=== PATIENT | male | born 1990 | race Caucasian/White ===

== ENCOUNTER 2018-05-01 14:01 | Emergency (ER) | payer BC, OTHER ==
--- OUTSIDE RECORDS SUMMARY | 2018-05-01 14:44 | XMS REPORT ---
:1990 External Reference #:[id number] Author Organization [facility] Address [address] [place] [address] Phone [phone] Care Team Providers Name Role Phone HCP given Primary Care Physician Unavailable Payers Type Date Identification Numbers Payment Provider Subscriber Commercial Effective: Policy Number: [id number] [facility] Mynor Cantu [address] [place] Expires: 2018 PayID: [id number] [address] [place] [address] Commercial Effective: 2018 Policy Number: Peter [employer]ential Rich Cantu [id number] Plan PayID: [id number] [address] [address] [place] [address] Problems Date Description Provider Status Onset: 04/11/2016 Gastroesophageal reflux disease Casper Escalera M.D. Active Onset: 04/11/2016 Edema Casper Escalera M.D. Active Onset: 04/11/2016 Opioid dependence, uncomplicated Casper Escalera M.D. Active Onset: 03/15/2017 Carpal tunnel syndrome of right wrist Casper Escalera M.D. Active Onset: 03/15/2017 Bladder muscle dysfunction - Casper Escalera M.D. 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 in mouth) every morning; suboxone prescriber # [id number]; rx due 04/21/18 Hydrochlorothiazi 06/07 Active Tablets 25mg 12tab take 1 R60.0 Silcoff, s tablet in Casper, the M.D. morning no more than 3x/wk, as needed for leg swelling Omeprazole 03/[address] 40mg 30cap take one K21.9 Silcoramy, s capsule by rosalinda Shirley M.DLuigi every day for acid reflux Cock Up Wrist 02/13 Active 1unit use as G56.01 Silcoff, Splint For R s Casper meraz (For CTS) overnight M.D. Oxybutynin 08/29 Active Tablets ER 5mg 30tab Take One N32.81 Silcoff, Chloride ER 24HR s Tablet By Rosalinda Shirley M.DLuigi Every Evening For Overactive Bladder Suboxone 12/18 Hx Film 8-2mg 75uni 2.5 films F11.20 Silcoff ts by rosalinda Shirley, - every M.D. 02/20 morning suboxone prescriber # [id number]; rx due 02/20/18 Nicotine 08/28 Hx Patches 21mg/24HR 42uni apply 1 F17.210 Silcoff 24HR ts patchCasper, - change M.D. 05/12 daily as directed for 6weeks then change to 14mg strength Suboxone 02/09 Hx Film 8-2mg 60uni 2 by mouth F11.20 Sil ts every Casper, - morning; M.D. 12/18 sub prescriber # [id number]; rx due 11/17/15 Hydrochlorothiazi 01/09 Hx Tablets 25mg 12tab take 1 R60.0 Silco, s tablet in Casper - the M.DLuigi 03/15 morning more than 3x/wk, for leg swelling Omeprazole 01/[address] 20mg 90cap 1 by mouth K21.9 co s every day Casper, - M.DLuigi 03/15 Hydrochlorothiazi 01/08 Hx Tablets 25mg take 1 R60.0 Unknown tablet - every 01/09 for edema Suboxone 01/08 Hx Film 12-3mg 1 by mouth F11.20 every - morning 02/09 Nexium 03/[address] 40mg 90cap 1 po qd 530.81 pa s - 03/12 Ciprodex 03/13 Hx Suspension 0.3%;0.1 4 Drops In 380.22 klepack /2005 % For Right - Ear bid 03/12 For 7 Days /2006 # QS For 7 Days. Ferrous Sulfate 02/22 Hx Tablets 325mg 120ta 1 PO qd 285.9 klepack /2006 bs - 02/22 Vicodin 02/22 Hx Tablets 5mg;500 60tab 1-2 PO Q4 826.0 klepack /2006 mg s Hours prn - 02/22 Prilosec(Generic 01/24 Hx 30uni 1 po q day klepack Brand) /2005 ts - 03/12 Immunizations CPT Code Status Date Vaccine Lot # [id number] Given 07/12/2017 Influenza Virus Vaccine, Quadrivalent, Split, [id number] Preservative Free 85870 Given 02/13/2017 Adacel or Boostrix, TDaP [id number] Given 03/08/2015 Tetanus diptheria Immunization 46536 Given 03/07/2004 Dtap Immunization (Tripedia) (Infanrix) Vital Signs Date Vital Result Comment 04/18/2018 BP Systolic 124 mmHg BP Diastolic 70 mmHg 03/19/2018 BP Systolic 116 mmHg BP Diastolic 78 mmHg 02/19/2018 BP Systolic 128 mmHg BP Diastolic 78 mmHg Height 69.50 inches 5'9.50" w/shoes Weight 216.00 lb w/shoes BMI (Body Mass Index) 31.4 kg/m2 01/06/2018 BP Systolic 116 mmHg BP Diastolic 62 mmHg Weight 219.00 lb 12/09/2017 BP Systolic 118 mmHg BP Diastolic 82 mmHg 11/11/2017 BP Systolic 124 mmHg BP Diastolic 74 mmHg Weight 214.00 lb 10/08/2017 BP Systolic 128 mmHg BP Diastolic 78 mmHg Weight 216.00 lb 09/06/2017 BP Systolic 116 mmHg BP Diastolic 68 mmHg Weight 217.00 lb heavy boots 08/07/2017 BP Systolic 116 mmHg BP Diastolic 66 mmHg 07/12/2017 BP Systolic 106 mmHg BP Diastolic 64 mmHg Weight 222.00 lb 06/07/2017 BP Systolic 118 mmHg BP Diastolic 76 mmHg 05/13/2017 BP Systolic 123 mmHg BP Diastolic 73 mmHg Heart Rate 59 /min Weight 231.00 lb with workboots 04/12/2017 BP Systolic 124 mmHg BP Diastolic 82 mmHg Weight 228.00 lb 03/15/2017 BP Systolic 120 mmHg BP Diastolic 78 mmHg Height 69.5 inches 5'9.50" with sneakers Weight 228.00 lb with sneakers BMI (Body Mass Index) 33.2 kg/m2 02/13/2017 BP Systolic 118 mmHg BP Diastolic 76 mmHg Weight 228.00 lb 01/15/2017 BP Systolic 118 mmHg BP Diastolic 72 mmHg Weight 231.00 lb w/shoes 12/18/2016 BP Systolic 122 mmHg BP Diastolic 82 mmHg 11/16/2016 BP Systolic 128 mmHg BP Diastolic 82 mmHg Weight 224.00 lb with shoes 10/12/2016 BP Systolic 128 mmHg BP Diastolic 82 mmHg Weight 223.00 lb 09/17/2016 BP Systolic 110 mmHg BP Diastolic 70 mmHg 08/28/2016 BP Systolic 116 mmHg BP Diastolic 60 mmHg Height 69 inches 5'9" Weight 220.00 lb BMI (Body Mass Index) 32.5 kg/m2 04/11/2016 BP Systolic 132 mmHg BP Diastolic 82 mmHg Weight 212.00 lb 01/10/2016 BP Systolic 138 mmHg BP Diastolic 78 mmHg BP Systolic Recheck 134 mmHg R arm sitting BP Diastolic Recheck 80 mmHg R arm sitting Heart Rate 76 /min reg Respiratory Rate 12 /min not laboured Height 69 inches 5'9" Weight 200.00 lb BMI (Body Mass Index) 29.5 kg/m2 03/12/2007 BP Systolic 130 mmHg BP Diastolic 78 mmHg Height 68.9 inches 5'8.90" Weight 237.00 lb BMI (Body Mass Index) 35.1 kg/m2 Last Menstrual Period 0 03/13/2006 BP Systolic 130 mmHg BP Diastolic 56 mmHg Body Temperature 98.1 F Height 68 inches 5'8" Weight 225.00 lb BMI (Body Mass Index) 34.2 kg/m2 02/22/2006 BP Systolic 116 mmHg BP Diastolic 80 mmHg 01/24/2006 BP Systolic 100 mmHg BP Diastolic 60 mmHg Height 68.6 inches 5'8.60" Weight 227.00 lb BMI (Body Mass Index) 33.9 kg/m2 Last Menstrual Period 0 Results Test Date Test Result H/L Range Note Urine Drug Screen Inhouse 12/09/2017 Ua Cocaine - Ua Opiates - Ua Amphetamines - Urine Methanphetamines - Urine Benzodiazepines QN [place] - Urine Oxycodone QL - Urine Drug Screen Inhouse 09/06/2017 Ua Cocaine - Ua Opiates - Ua Amphetamines - Urine Methanphetamines - Urine Benzodiazepines QN [place] - Urine Oxycodone QL - Culture Urine Inhouse 08/28/2016 Colonies no growth Urine Micro Inhouse 08/28/2016 Ua WBC 4-8 Ua RBC - Ua Casts - Ua Epi - Ua Other - Ua Glucose - Ua Bilirubin - Ua Ketones - Ua Specific [place] 1.020 Ua Blood - Ua PH 6.0 Ua Protein - Ua Urobilinogen - Ua Nitrite - Ua Leukocytes - Urine Drug Screen Inhouse 01/10/2016 Ua Cocaine - Ua Opiates - Ua Amphetamines - Urine Methanphetamines - Urine Benzodiazepines QN [place] - Urine Oxycodone QL - CBC With Electronic Diff 02/13/2006 White Blood Count 10.1 CUMM 4.8-10.8 Abs Basophils 0 0-0.2 Abs Eosinophils 0.2 0-0.6 Absolute Neutrophil Count 7.2 1.5-7.7 Abs Lymphs 2.1 1.0-4.8 Abs Mononuclear 0.7 0-0.8 Basophil % 0.4 % 0-2 Hematocrit 41 % Low 42-52 Hemoglobin 14.6 g/dL 14.0-18.0 Eosinophil % 1.8 % 0-6 Gran % 70.5 % 38-83 Lymph % 20.8 % 20-45 Mean Corpuscular HGB Cone 35 g/dL 32-36 Mean Corpuscular Hemoglob 29 pg 27-31 Mean Corpuscular Volume 83 um3 80-94 Mean Platelet Volume 9.2 um3 7.4-10.4 Mononuclear % 6.5 % 1-9 Platelet Count 255 CUMM 150-450 Red Cell Count 4.96 CUMM 4.6-6.2 Redcell Distribution WDTH 13 % 10.5-15 Retic Count 02/13/2006 Corrected Retic 1.8 % High 0.5-1.5 Hematocrit For Retic Coun 41 % Low 42-52 Maturation Factor 1.0 RBC Retic Count 4.96 CUMM 4.6-6.2 Reticulocyte Count 2.00 % High 0.5-1.5 Immature Retic Fraction 0.32 Mean Retic Volume 97.1 Retic Index 1.8 Laboratory test finding 02/13/2006 Folic Acid 10.2 NG/ML 2.2-18.3 Vitamin B12 380 pg/mL 180-914 Iron & Iron Binding Capacity 02/13/2006 Iron Total 69 g/dL 45-182 Unsaturated Iron Binding 372 g/dL Total Iron Binding Capacity 441 g/dL 250-450 % Iron Saturation 16 % 15-55 Transferrin 315.3 Lipid Profile 02/13/2006 Cholesterol/HDL Ratio 5.96 AVERAGE High 1-4.97 (Trig/Chol/HDL) Cholesterol 161 mg/dL 100-175 Triglyceride 146 mg/dL 40-200 High Density Lipoprotein 27 mg/dL Low 40-60 1 Low Density Lipoprotein 105 mg/dL High Less Than 100 2 H. Pylori Evaluation Quantitat 01/24/2006 H. Pylori Iga < 0.8 INDEX < 0.80 3 H. Pylori Igg < 0.8 INDEX <0.80 H. Pylori Igm < 0.8 INDEX <0.80 Laboratory test finding 01/24/2006 Amylase 54 U/L 30-125 Lipase 20 U/L Low 22-51 Comp Metabolic Panel 01/24/2006 One Over Creatinine 1.25 Anion Gap 7.0 mmol/L 2-11 4 Albumin/Globulin Ratio 1.7 1-3 Albumin 4.2 GM/DL 3.6-5.4 Alkaline Phosphatase 121 U/L 50-176 Alt (SGPT) 49 U/L 17-63 Ast (Sgot) 30 U/L 12-42 BUN 10 mg/dL 6-24 Calcium 9.8 mg/dL 8.7-10.2 Chloride 107 mmol/L 101-111 Co2 (Carbon Dioxide) 25.0 mmol/L 22-32 Globulin 2.5 GM/DL 2-4 Glucose 89 mg/dL 70-105 Potassium 4.5 mmol/L 3.5-5.0 Sodium 139 mmol/L 135-145 Bilirubin Total 0.6 mg/dL 0.4-1.5 Total Protein 6.7 GM/DL 6.2-8.1 BUN/Creatinine Ratio 12.5 8-20 Creatinine 0.8 mg/dL 0.5-1.4 CBC With Manual Diff 01/24/2006 RBC Morphology NORMAL White Blood Count 7.6 CUMM 4.8-10.8 Hematocrit 41 % Low 42-52 Hemoglobin 14.7 g/dL 14.0-18.0 Mean Corpuscular HGB Cone 36 g/dL 32-36 Mean Corpuscular Hemoglob 30 pg 27-31 Mean Corpuscular Volume 83 um3 80-94 Mean Platelet Volume 8.7 um3 7.4-10.4 Platelet Count 281 CUMM 150-450 Polysegmented Neutrophil 73 % 38-83 Red Cell Count 4.97 CUMM 4.6-6.2 Redcell Distribution WDTH 12 % 10.5-15 Absolute Neutrophil Count 5.5 Eosenophil 1 % 0-6 Lymphocyte 23 % 5-47 Monocyte 3 % 0-13 Laboratory test finding 01/24/2006 TSH 2.41 MIU/ML 0.34-5.60 Lipid Profile (Trig/Chol/HDL) 01/24/2006 Cholesterol 152 mg/dL 100-175 Triglyceride 173 mg/dL 40-200 High Density Lipoprotein 19 mg/dL Low 40-60 5 Low Density Lipoprotein 98 mg/dL Less Than 100 6 Cholesterol/HDL Ratio 8.00 AVERAGE High 1-4.97 1 Classification: Low . 2 CALCULATED LDL APPROXIMATES THE VALUE OF A DIRECT LDL MEASUREMENT. Classification: Near or above optimal . 3 REFERENCE RANGE FOR H. PYLORI IGG, IGM IGA: LESS THAN 0.8 . . . . . . . NEGATIVE 0.8 - 1.0 . . . . . . . . . BORDERLINE GREATER THAN 1.0 . . . . . POSITIVE THIS TEST WAS DEVELOPED FROM A COMMERCIAL KIT LABELED "RESEARCH USE ONLY". THE KIT HAS NOT BEEN CLEARED OR APPROVED BY THE [place] FOOD AND DRUG ADMINISTRATION (FDA). THE PERFORMANCE CHARACTERISTICS OF THIS TEST WERE ESTABLISHED THROUGH VALIDATION BY [employer], WHICH IS REGULATED UNDER THE CLINICAL LABORATORY IMPROVEMENT AMENDMENTS OF 1988 ("CLIA") QUALIFIED TO PERFORM HIGH COMPLEXITY CLINICAL TESTING. TEST PERFORMED BY: [employer] [id number] [place] [address] 4 Anion gap measurement may be of limited value in the presence of any alkalosis, especially in a combined acid base disorder. . 5 Classification: Low . 6 CALCULATED LDL APPROXIMATES THE VALUE OF A DIRECT LDL MEASUREMENT. Classification: Optimal Level . Procedures Description No Information Encounters Type Date Location Provider CPT E/M Dx Office Visit 04/18/2018 4:45p Main Office Casper Escalera M.D. 28328 F11.20 Z71.51 R53.83 Z13.220 Office Visit 03/19/2018 4:00p Main Office Casper Escalera M.D. 20965 F11.20 Z71.51 N32.81 Office Visit 02/19/2018 4:15p Main Office Casper Escalera M.D. 82772 F11.20 Z71.51 N32.81 Office Visit 01/06/2018 4:30p Main Office Casper Escalera M.D. 71718 F11.20 Z71.51 Office Visit 12/09/2017 4:30p Main Office Casper Escalera M.D. 47508 F11.20 Z71.51 Office Visit 11/11/2017 4:45p Main Office Casper Escalera M.D. 81628 F11.20 Z71.51 Office Visit 10/08/2017 4:00p Main Office Casper Escalera M.D. 78198 F11.20 Z71.51 R60.0 Office Visit 09/06/2017 2:00p Main Office Casper Escalera M.D. 85337 F11.20 Z71.51 Office Visit 08/07/2017 4:15p Main Office Casper Escalera M.D. 43246 F11.20 Z71.51 Office Visit 07/12/2017 4:15p Main Office Casper Escalera M.D. 61676 F11.20 Z71.51 R60.0 Z23 Z41.8 Office Visit 06/07/2017 10:45a Main Office Casper Escalera M.D. 78664 F11.20 Z71.51 R60.0 Z23 Office Visit 05/13/2017 4:45p Main Office Casper Escalera M.D. 28365 F11.20 Z71.51 Office Visit 04/12/2017 10:45a Main Office Casper Escalera M.D. 62203 F11.20 K21.9 N32.81 Z71.51 Office Visit 03/15/2017 3:30p Main Office Casper Escalera M.D. 52803 F11.20 K21.9 G56.01 R07.9 N32.81 Office Visit 02/13/2017 3:00p Main Office Casper Escalera M.D. 95273 F11.20 Z71.51 G56.01 Z41.8 Z23 Office Visit 01/15/2017 3:00p Main Office Casper Escalera M.D. 59525 F11.20 Z71.51 Office Visit 12/18/2016 4:45p Main Office Casper Escalera M.D. 85649 F11.20 Z71.51 Office Visit 11/16/2016 4:45p Main Office Casper Escalera M.D. 77347 F11.20 F17.210 N32.81 K21.9 Office Visit 10/12/2016 8:30a Main Office Casper Escalera M.D. 72849 F11.20 F17.210 Z71.89 Office Visit 09/17/2016 4:45p Main Office Casper Escalera M.D. 66172 F11.20 N32.81 R39.15 R35.0 F17.210 Office Visit 08/28/2016 4:00p Main Office Casper Escalera M.D. 86309 R35.0 R39.15 F17.210 F11.20 Office Visit 04/11/2016 1:15p Main Office Casper Escalera M.D. 06506 F11.20 K21.9 R60.0 Office Visit 01/10/2016 10:30a Main Office Casper Escalera M.D. 89984 F11.20 K21.9 R60.0 Office Visit 03/12/2007 10:30a Main Office mary 93256 V20.2 530.81 278.00 285.9 272.8 Office Visit 03/13/2006 3:30p Main Office klepagely 64277 388.71 380.22 Office Visit 02/22/2006 4:00p Main Office klepagely 32921 530.81 278.00 285.9 272.8 826.0 Office Visit 01/24/2006 10:30a Main Office mary 87934 530.81 789.06 278.00 Plan of Care Future Appointment(s):06/16/2018 4:45 pm - Casper Escalera M.D. at Main Bdywyu9905/19/2018 4:30 pm - Casper Escalera M.D. at Main Azezec6204/18/2018 - Casper Escalera M.D.F11.20 Opioid dependence, uncomplicatedFollow up:RTO 1 lgvriE69.51 Drug abuse counseling and surveillance of drug nhsiqqG20.83 Other fatigueNew Labs:CBS W/Automated DiffComprehensive Metabolic PanelThyroid Stim HormoneComments:If labs unremarkable will refer him for sleep study as the next step. This plan was discussed.Z13.220 Encounter for screening for lipoid disordersNew Labs:LDL Cholesterol Profile
--- NOTE | 2018-05-01 15:08 | UC ---
Lower Extremity/Ankle HPI - History of Current Complaint Stated Complaint: L KNEE/ANKLE SPORTS INJURY Time Seen by Provider: 05/01/18 14:52 - Allergies/Home Medications Allergies/Adverse Reactions: Allergies Allergy/AdvReac Type Severity Reaction Status Date / Time cefaclor [From Ceclor] Allergy Unknown hives, Verified 05/01/18 14:49 swelling PMH/Surg Hx/FS Hx/Imm Hx - Surgical History Surgical History: Yes Surgery Procedure, Year, and Place: t/a, appy - Family History Known Family History: Positive: Cardiac Disease, Hypertension - Social History Alcohol Use: None Substance Use Type: None Smoking Status (MU): Heavy Every Day Tobacco Smoker Discharge - Discharge Plan Referrals: Casper Escalera MD [Primary Care Provider] -
[2018-05-01 15:32] VITALS: BP 126/77
--- NOTE | 2018-05-01 15:35 | RAD ---
HISTORY: injury to the left knee, COMPARISONS: None VIEWS: 4, Frontal, lateral, axial, and oblique views of the left knee FINDINGS: BONE DENSITY: Normal. BONES: There is no displaced fracture. JOINTS: There is no arthropathy. There is no suprapatellar joint effusion or lipohemarthrosis. ALIGNMENT: There is no dislocation. SOFT TISSUES: Unremarkable. OTHER FINDINGS: None. IMPRESSION: NO ACUTE OSSEOUS INJURY. IF SYMPTOMS PERSIST, RECOMMEND REPEAT IMAGING.
--- NOTE | 2018-05-01 15:42 | UC ---
Knee Pain HPI - History of Current Complaint Chief Complaint: UCLowerExtremity Stated Complaint: L KNEE/ANKLE SPORTS INJURY Time Seen by Provider: 05/01/18 14:52 Pain Intensity: 5 - Allergies/Home Medications Allergies/Adverse Reactions: Allergies Allergy/AdvReac Type Severity Reaction Status Date / Time cefaclor [From Ceclor] Allergy Unknown hives, Verified 05/01/18 14:49 swelling PMH/Surg Hx/FS Hx/Imm Hx - Surgical History Surgical History: Yes Surgery Procedure, Year, and Place: t/a, appy. tubes ears - Family History Known Family History: Positive: Cardiac Disease, Hypertension - Social History Alcohol Use: None Substance Use Type: None Substance Use Comment - Amount & Last Used: in recovery Smoking Status (MU): Heavy Every Day Tobacco Smoker Type: Cigarettes Amount Used/How Often: 1.5 ppd Have You Smoked in the Last Year: Yes Household Exposure Type: Cigarettes Review of Systems Motor: Negative Neurovascular: Negative Musculoskeletal: Other: - pain ,swelling left knee Neurological: Negative All Other Systems Reviewed And Are Negative: Yes Physical Exam Triage Information Reviewed: Yes Appearance: Well-Appearing Vital Signs: Initial Vital Signs Temp 37.2 C 05/01/18 14:52 Pulse 83 05/01/18 14:52 Resp 18 05/01/18 14:52 BP 126/77 05/01/18 14:52 Pulse Ox 98 05/01/18 14:52 Vital Signs Reviewed: Yes Eye Exam: Normal ENT Exam: Normal ENT: Positive: Normal ENT inspection Neck exam: Normal Neck: Positive: Supple Respiratory Exam: Normal Respiratory: Positive: Chest non-tender Musculoskeletal Exam: Other - pain with flexion and extension left knee, no effusion, negative Mirna, no varus or valgus evidence of ligamentous laxity Skin Exam: Normal Knee Pain Course/Dx - Differential Dx/Diagnosis Provider Diagnoses: knee sprain Discharge - Sign-Out/Discharge Documenting (check all that apply): Patient Departure - Discharge Plan Condition: Good Disposition: HOME Patient Education Materials: Knee Sprain (ED) Referrals: Casper Escalera MD [Primary Care Provider] - - Billing Disposition and Condition Condition: GOOD Disposition: Home
== END 2018-05-01 15:55 | disposition home or self-care (01) ==
LOC: UCCORT 14:01
DX: S83.92XA Sprain of unspecified site of left knee, initial encounter (principal); X58.XXXA Exposure to other specified factors, initial encounter; Y93.9 Activity, unspecified; Y92.9 Unspecified place or not applicable; Z88.1 Allergy status to other antibiotic agents; F17.210 Nicotine dependence, cigarettes, uncomplicated
CPT/HCPCS: 99211; G0463

== ENCOUNTER 2018-05-10 18:31 | Emergency (ER) | payer BC, OTHER ==
[2018-05-10 19:31] VITALS: BP 123/77
--- NOTE | 2018-05-10 20:19 | UC ---
Lower Extremity/Ankle HPI - History of Current Complaint Chief Complaint: UCLowerExtremity Stated Complaint: LEFT LEG COMPLAINT Time Seen by Provider: 05/10/18 19:52 Hx Obtained From: Patient Onset/Duration: Sudden Onset - after being hit by a softball during a game earlier today. Severity Initially: Mild Severity Currently: Moderate Pain Intensity: 4 Aggravating Factor(s): Standing, Ambulation Alleviating Factor(s): Rest Able to Bear Weight: No - But was able to walk on it early on. - Risk Factors Gout Risk Factors: Negative DVT Risk Factors: Negative Septic Arthritis Risk Factor: Negative - Allergies/Home Medications Allergies/Adverse Reactions: Allergies Allergy/AdvReac Type Severity Reaction Status Date / [facility] Allergy Unknown hives, Verified 05/01/18 14:49 swelling PMH/Surg Hx/FS Hx/Imm Hx Previously Healthy: Yes - except for opioid abuse GI/ History: Gastroesophageal Reflux, Other - overacitve bladder Other GI/ History: overactive bladder - Surgical History Surgical History: Yes Surgery Procedure, Year, and Place: t/a, appy. tubes ears - Family History Known Family History: Positive: Cardiac Disease, Hypertension - Social History Alcohol Use: None Substance Use Type: None Substance Use Comment - Amount & Last Used: in recovery Smoking Status (MU): Heavy Every Day Tobacco Smoker Type: Cigarettes Amount Used/How Often: 1.5 ppd Have You Smoked in the Last Year: Yes Household Exposure Type: Cigarettes Review of Systems Constitutional: Negative Skin: Bruising Eyes: Negative ENT: Negative Respiratory: Negative Cardiovascular: Negative Gastrointestinal: Negative Genitourinary: Negative Motor: Negative Neurovascular: Negative Musculoskeletal: Edema, Other: - Pain in dorsal left foot. Neurological: Negative Psychological: Negative All Other Systems Reviewed And Are Negative: Yes Physical Exam - Summary Physical Exam Summary: 27 yo man with tender, swollen dorsal left foot. No other injuries noted. No acute distress and has good color. He is hopping on one foot. Triage Information Reviewed: Yes Appearance: Well-Appearing Vital Signs: Initial Vital Signs Temp 99.3 F 05/10/18 19:25 Pulse 82 05/10/18 19:25 Resp 16 05/10/18 19:25 BP 123/77 05/10/18 19:25 Pulse Ox 99 05/10/18 19:25 Vital Signs Reviewed: Yes Eye Exam: Normal ENT Exam: Normal ENT: Positive: Normal ENT inspection Dental Exam: Normal Neck exam: Normal Respiratory Exam: Normal Cardiovascular Exam: Normal Abdominal Exam: Normal Bowel Sounds: Positive: Present Male Genital Exam: Positive: Other - not examined. Musculoskeletal: Positive: Strength Intact, Edema @ - dorsal tender left midfoot Neurological Exam: Normal Psychological Exam: Normal Skin: Positive: Other - Mild ecchymosis to dorsal left foot. Lower Extremity Course/Dx - Differential Dx/Diagnosis Provider Diagnoses: contusion left foot Discharge - Sign-Out/Discharge Documenting (check all that apply): Patient Departure - Discharge Plan Condition: Stable Disposition: HOME Patient Education Materials: Contusion in Adults (ED) Print Language: LEBANESE Referrals: Casper Escalera MD [Primary Care Provider] - Additional Instructions: Use ice packs to top of affected foot for next 24 hours. Keep foot elevated most of day. Take Tylenol alternating with ibuprofen, as needed, for pain and sweling. Wear KARLY wrap for next 2 days. Follow up with primary care in 2 days if not improving. - Billing Disposition and Condition Condition: STABLE Disposition: Home
[2018-05-10] MEDS ORDERED: Acetaminophen TAB* 325 MG PO ONE (20:21)
--- NOTE | 2018-05-11 11:19 | RAD ---
Indication: Blunt injury to the top of the LEFT foot. Pain and bruising at the metatarsal region. Previous fracture. Comparison: February 21, 2006 Technique: AP, lateral, and oblique views LEFT foot. REPORT AND IMPRESSION: #. Negative for fracture or malalignment. Mild soft tissue swelling over the dorsum of the foot.
== END 2018-05-10 21:06 | disposition home or self-care (01) ==
LOC: UCCORT 18:31
DX: S90.32XA Contusion of left foot, initial encounter (principal); W21.07XA Struck by softball, initial encounter; Y93.64 Activity, baseball; Y92.9 Unspecified place or not applicable; Z88.1 Allergy status to other antibiotic agents; F17.210 Nicotine dependence, cigarettes, uncomplicated
CPT/HCPCS: 99212; A9270-GY; G0463